=== PATIENT | female | born 2000 | race Caucasian/White ===

== ENCOUNTER → 2021-05-28 | Outpatient (CLI) | payer BC ==
--- NOTE | 2021-05-28 11:04 | KCIC ---
Examination: MRI of the right wrist without contrast HISTORY: History of right wrist ganglion cyst COMPARISON: None available Technique: Multiplanar, multisequence MR imaging of the right wrist was performed without contrast. FINDINGS: The alignment of the carpal bones grossly appears unremarkable. The alignment of the carpometacarpal joints, metacarpophalangeal joints grossly appears unremarkable. The scapholunate ligament, lunotriqu etral ligament appears intact. The extensor tendons grossly appears intact. Minimal amount of fluid i dentified in the second extensor compartment tendons at the level of the wrist likely mild tenosynovi tis. There is fluid measuring 3.2 x 1.0 cm identified about the flexor carpi radialis tendon sheath e xtending from the level of the wrist to the base of the metacarpals, best visualized on series series 11 image 47 to image 32 could be ganglion cyst or tenosynovitis.. The triangular fibrocartilage comp milady appears intact. IMPRESSION: 1. Fluid measuring 3.2 x 1.0 cm identified about the flexor carpi radialis tendon sheath extending f rom the level of the wrist the base of the metacarpals, best visualized on series 11 image 47 to imag e 32 could be ganglion cyst or tenosynovitis. 2. Minimal amount of fluid identified in the second extensor compartment tendons at the level of the wrist likely mild tenosynovitis. Electronically signed by: Gonzalo Marquez MD (05/28/2021 11:02 AM) [id number]
== END ==
LOC: KCIC MRI 07:53
PROVIDERS: ATTEND Physician Assistant
DX: M67.431 Ganglion, right wrist (principal)
CPT/HCPCS: 73221